=== PATIENT | female | born 1990 | race Caucasian/White ===

== ENCOUNTER 2021-02-23 12:14 | Emergency (ER) | payer SELFPAY ==
[2021-02-23] MEDS ORDERED: PROPRANOLOL HYD60 M1 (12:33)
[2021-02-23] MEDS ORDERED: FAMOTIDINE 1010 MG PO (12:34)
[2021-02-23] MEDS ORDERED: LAMICTAL200 M1 PO (12:34)
[2021-02-23] MEDS ORDERED: CLEOCIN HCL300 MG PO (12:53)
[2021-02-23 13:08] VITALS: BP 121/87
== END 2021-02-23 13:04 | disposition home or self-care (01) ==
LOC: ED 12:14
DX: S02.5XXA Fracture of tooth (traumatic), initial encounter for closed fracture (principal); K02.9 Dental caries, unspecified; K05.30 Chronic periodontitis, unspecified; F17.210 Nicotine dependence, cigarettes, uncomplicated; X58.XXXA Exposure to other specified factors, initial encounter